=== PATIENT | female | born 1985 | race Caucasian/White ===

== ENCOUNTER → 2017-06-08 | Outpatient (CLI) | payer OTHER ==
[2017-06-08 12:10] LABS: ALT 18 U/L (9-52); AST 19 U/L (14-36); Albumin 3.7 g/dL (3.5-5.0); Alkaline Phosphatase 59 U/L (38-126); Anion Gap 7 mmol/L; Blood Urea Nitrogen 18 mg/dL (7-17); C Reactive Protein 11.6 mg/L (<10.0); Calcium 9.5 mg/dL (8.4-10.2); Carbon Dioxide 25 mmol/L (22-30); Chloride 108 mmol/L (98-107); Glucose 99 mg/dL (74-99); Potassium 4.3 mmol/L (3.5-5.1); Sodium 140 mmol/L (137-145); Total Bilirubin 0.3 mg/dL (0.2-1.3); Total Protein 6.6 g/dL (6.3-8.2)
[2017-06-08 12:46] LABS: Basophils # (A) 0.1 k/uL (0-0.2); Basophils % (A) 1 %; Eosinophils # (A) 0.3 k/uL (0-0.7); Eosinophils % (A) 3 %; HCT 42.1 % (34.0-46.0); HGB 14.2 gm/dL (11.4-16.0); Lymphocytes # (A) 2.7 k/uL (1.0-4.8); Lymphocytes % (A) 32 %; MCHC 33.8 g/dL (31.0-37.0); MCV 88.8 fL (80.0-100.0); Mean Platelet Volume 6.9; Monocytes # (A) 0.4 k/uL (0-1.0); Monocytes % (A) 5 %; Neutrophils % (A) 59 %; Platelet Count 287 k/uL (150-450); RBC 4.75 m/uL (3.80-5.40); RDW 12.9 % (11.5-15.5); WBC 8.5 k/uL (3.8-10.6)
[2017-06-08 14:36] LABS: Erythrocyte Sedimentation Rate 8 mm/hr (0-20)
[2017-06-09 11:15] LABS: HLA B27 NEGATIVE
== END | disposition home or self-care (01) ==
LOC: LABWHC1 11:09
PROVIDERS: ATTEND Family Medicine
DX: M79.7 Fibromyalgia (principal); F43.22 Adjustment disorder with anxiety; M25.532 Pain in left wrist; R53.83 Other fatigue
CPT/HCPCS: 36415; 80053; 85025; 85652; 86140; 86162; 86431; 86812

== ENCOUNTER → 2018-03-14 | Outpatient (CLI) | payer OTHER ==
--- NOTE | 2018-03-15 07:10 | US ---
EXAMINATION TYPE: US thyroid st tissue head/neck DATE OF EXAM: 03/14/2018 COMPARISON: NONE CLINICAL HISTORY: R22.0 Localized swelling, mass and lump, head. GLAND SIZE: Right Lobe: 5.1 x 1.2 x 1.4 cm Overall Parenchyma: homogenous Left Lobe: 4.7 x 1.3 x 1.2 cm Overall Parenchyma: homogeneous Isthmus Thickness: 0.3 cm NODULES RIGHT: # of nodules measured on right: 0 LEFT: # of nodules measured on left: 0 ISTHMUS: # of nodules measured in the isthmus: 0 Bilateral neck scanned, no evidence of lymphadenopathy. IMPRESSION: No distinct abnormality appreciated.
== END ==
LOC: RADUSWWP 16:13
PROVIDERS: ATTEND Family Medicine
DX: R22.0 Localized swelling, mass and lump, head (principal)
CPT/HCPCS: 76536

== ENCOUNTER → 2021-03-23 | Outpatient (CLI) | payer OTHER ==
[2021-03-23 14:18] VITALS: BP 148/82; PULSE 69; TEMP 98.2; BMI 50.9
--- NOTE | 2021-03-23 14:47 | P.HPBAR ---
Bariatric H&P - History & Physicial H&P Date: 03/23/21 History & Physicial: Visit/CC: initial clinic visit Patient initial contact: Initial weight: Initial weight in pounds: Height: 5 ft 9 in Initial BMI: Last weight: Current weight: 156.489 kg Current weight in pounds: 345.00 Current BMI: 50.9 [place] body weight (based on NIH guidelines): 65.771 kg Excess body weight loss: The patient is a 35 year-old F who presents for Bariatric Assessment. Patient presents today for initial presurgical consultation. She is morbidly obese. Her BMI is 51. She has had lifetime problems obesity. Past Medical History Past Medical History: Fibromyalgia, Osteoarthritis (OA) History of Any Multi-Drug Resistant Organisms: None Reported Past Anesthesia/Blood Transfusion Reactions: No Reported Reaction Past Psychological History: No Psychological Hx Reported Smoking Status: Current some day smoker Past Alcohol Use History: Occasional Past Drug Use History: None Reported Surgical - Exam Vital Signs Temp Pulse BP 98.2 F 69 148/82 03/23/21 14:10 03/23/21 14:10 03/23/21 14:10 - General well developed, well nourished, no distress - Eyes PERRL - ENT normal pinna - Neck no masses - Respiratory normal expansion - Cardiovascular Rhythm: regular - Abdomen Abdomen: soft, non tender Bariatric Assessment & Plan Plan: Morbid obesity. BMI 51. Patient is an excellent understanding of sleeve d ystrophy. When over the risks and benefits of procedure including conversion to the open procedure and injury to the stomach liver spleen and issues gastric stapling disruption, bleeding and scarring. Patient be scheduled for EGD. Bariatric Checklist Checklist: Plan: Checklist: EGD: 1. Hiatal hernia: 2. H. Pylori: HgbA1c: Vitamin D: Smoking: Current every day smoker Primary care physician referral: dr calvin Psychiatry clearance: Cardiology clearance: Sleep study: Diet journal: VTE risk score: VTE risk level: Rehab needs at discharge:
== END | disposition home or self-care (01) ==
LOC: BARWHC3 13:48
PROVIDERS: ATTEND Surgery
DX: E66.01 Morbid (severe) obesity due to excess calories (principal); Z68.43 Body mass index [BMI] 50.0-59.9, adult
CPT/HCPCS: 99211